=== PATIENT | male | born 1985 | race Caucasian/White ===

== ENCOUNTER 2018-05-19 10:45 | Emergency (ER) | payer OTHER ==
[~2018-05-19] VITALS: Ht 172.7 cm; Wt 99.8 kg
[~2018-05-19 10:45] MED LIST: BACTRIM DS TAB1 EACH PO; CYCLOBENZAPRINE5 MG PO; FLEXERIL PO; HYDROCODONE-AP1 EAC6 PO; IBUPROFEN 600600 M1 PO; IBUPROFEN 800800 M1 PO; NOHOMEMEDICATIONS; NORCO 5-325 TA1 EACH PO; PERCOCET 5-3251 EACH PO
[2018-05-19] MEDS ORDERED: NORCO 5-325 TA1 EAC1 PO (11:50)
[2018-05-19] MEDS ORDERED: BACTRIM DS TAB1 EACH PO (11:50)
[2018-05-19 11:59] VITALS: BP 144/95
== END 2018-05-19 11:59 | disposition home or self-care (01) ==
LOC: M.ERS 10:45
DX: L02.11 Cutaneous abscess of neck (principal); L73.9 Follicular disorder, unspecified; F17.210 Nicotine dependence, cigarettes, uncomplicated

== ENCOUNTER 2018-05-22 02:53 | Emergency (ER) | payer OTHER ==
[~2018-05-22] VITALS: Ht 172.7 cm; Wt 90.7 kg
[~2018-05-22 02:53] MED LIST changes: +NORCO 5-325 TA1 EAC1 PO
[2018-05-22 03:00] VITALS: BP 122/80
[2018-05-22] MEDS ORDERED: CLEOCIN HCL150 MG PO (03:27)
[2018-05-22] MEDS ORDERED: HYDROCODON-ACE1 EAC8 PO (03:27)
== END 2018-05-22 03:38 | disposition home or self-care (01) ==
LOC: M.ERS 02:53
DX: L02.11 Cutaneous abscess of neck (principal)

== ENCOUNTER 2019-01-20 11:08 | Emergency (ER) | payer OTHER ==
[~2019-01-20] VITALS: Ht 172.7 cm; Wt 95.3 kg
[~2019-01-20 11:08] MED LIST changes: +CLEOCIN HCL150 MG PO; +HYDROCODON-ACE1 EAC8 PO
[2019-01-20 11:52] LABS: ABSOLUTE BASOPHILS 0.1 thou/uL (0.0-0.2); ABSOLUTE EOSINOPHILS 0.2 thou/uL (0.0-0.7); ABSOLUTE LYMPHOCYTES 2.9 thou/uL (0.8-5.3); ABSOLUTE MONOCYTES 1.3 thou/uL (0.0-1.2); BASOPHILS 0.6 %; HEMATOCRIT 43.6 % (42.0-52.0); HEMOGLOBIN 14.9 gm/dL (14.0-18.0); LYMPHOCYTES 27.9 %; MCH 29.4 pg (26.0-34.0); MCHC 34.2 g/dL (28.0-37.0); MCV 85.9 fL (80.0-100.0); MONOCYTES 12.4 %; MPV 7.2 fl. (7.2-11.1); NUCLEATED RBCS 0 /100WBC; PLATELET COUNT* 349 thou/uL (150-400); POLYS 57.1 %; RBC 5.08 mil/uL (4.50-6.00); RDW-CV 13.6 % (10.5-14.5); WBC 10.6 thou/uL (4.0-11.0)
[2019-01-20] MEDS ORDERED: MOBIC15 MG PO (12:43)
[2019-01-20 12:45] VITALS: BP 168/100
== END 2019-01-20 12:45 | disposition home or self-care (01) ==
LOC: M.ERS 11:08
PROVIDERS: Nurse Practitioner Family
DX: M25.512 Pain in left shoulder (principal)